=== PATIENT | male | born 1960 | race Two or more races ===

== ENCOUNTER 2017-01-13 08:17 | Emergency (ER) | payer MEDICAID ==
[~2017-01-13] VITALS: Ht 177.8 cm; Wt 55.8 kg
--- NOTE | 2017-01-13 08:20 | NUR ---
PATIENT BIB [phone] FOR CONSTIPATION, LAST BM WAS THIS AM. PATIENT'S A/OX 4. BREATHING EVEN AND UNLABORED. NO SOB. VITALS STABLE. SAFETY AND COMFORT MEASURES IN PLACE. AWAITING MD ORDERS.
[2017-01-13] MEDS ORDERED: MAGNESIUM CITRATE 296 ML BOTTLE ONE (08:40)
--- NOTE | 2017-01-13 08:42 | NUR ---
PATIENT MEDICATED PER MD ORDERS.
[2017-01-13] MEDS ORDERED: MAGNESIUM CITRATE 296 ML BOTTLE PO ONE (09:00)
[2017-01-13] MEDS ORDERED: NA PHOS,M-B/NA PHOS,DI-BA 1 EA ENEMA RC ONE ×2 (09:57→10:00)
--- NOTE | 2017-01-13 10:10 | NUR ---
FLEET ENEMA ADMINISTERED PER MD ORDERS.
--- NOTE | 2017-01-13 10:35 | NUR ---
PATIENT HAD FULL BOWEL MOVEMENT, STATING HE FEELS MUCH BETTER. MD INFORMED.
--- NOTE | 2017-01-13 10:45 | NUR ---
Patient discharged to home in stable condition. Written and verbal after care instructions given. Patient verbalizes understanding of instruction.
[2017-01-13 10:52] VITALS: BP 132/80
== END 2017-01-13 10:45 | disposition home or self-care (01) ==
LOC: ER 08:18
DX: K59.00 Constipation, unspecified (principal); G89.29 Other chronic pain; Z79.891 Long term (current) use of opiate analgesic
CPT/HCPCS: A4606; Z7610

== ENCOUNTER 2017-01-16 21:30 | Emergency (ER) | payer MEDICAID ==
[~2017-01-16] VITALS: Ht 177.8 cm; Wt 55.8 kg
--- NOTE | 2017-01-16 23:43 | NUR ---
ALEXIS PUGH AT BEDSIDE TO G[facility] BARAH[facility].
[2017-01-16] MEDS ORDERED: LIDOCAINE 2% JEL UROJET 10 ML MM ONE (23:54)
[2017-01-17] MEDS ORDERED: LIDOCAINE 2% JEL UROJET 10 ML MM ONE
[2017-01-17 00:08] LABS: BASOPHILS % (AUTO) 0.1 % (0.0-2.0); EOSINOPHILS % (AUTO) 0.1 % (0.0-6.0); HEMATOCRIT 49 % (39-51); HEMOGLOBIN 16.5 g/dL (13.5-17.5); LYMPHOCYTES # (AUTO) 1.6 /CMM (0.8-4.8); LYMPHOCYTES % (AUTO) 9.9 % (20.0-44.0); MEAN CORPUSCULAR HEMOGLOBIN 32 PG (26.0-33.0); MEAN CORPUSCULAR HGB CONC 34 g/dl (31.0-36.0); MEAN CORPUSCULAR VOLUME 96 fL (80-96); MONOCYTES # (AUTO) 2.3 /CMM (0.1-1.30); MONOCYTES % (AUTO) 13.5 % (2.0-12.0); NEUTROPHILS # (AUTO) 12.8 /CMM (1.8-8.9); NEUTROPHILS % (AUTO) 76.4 % (43.0-81.0); PLATELET COUNT (AUTO) 361 /CMM (150-450); RDW COEFFICIENT OF VARIATION 12.4 (11.5-15.0); RED BLOOD CELL COUNT(AUTO) 5.14 MIL/uL (4.5-6.0); WHITE BLOOD COUNT (AUTO) 16.7 K/uL (4.3-11.0)
--- NOTE | 2017-01-17 00:18 | NUR ---
UNABLE TO CATH PT FOR URINE SAMPLE, BRIGHT RED BLOOD NOTED, 2ND ATTEMPT UNSUCCESSFUL WITNESSED BY ER MD. ER MD AWARE, ER MD AT BEDSIDE TO RE-EVAL PT. PT TOLERATED PROCEDURE WELL.
[2017-01-17 00:22] LABS: INR 1.02 (0.87-1.13); PROTHROMBIN TIME 10.6 SECS (9.5-12.7)
--- NOTE | 2017-01-17 00:22 | NUR ---
56ML URINE NOTED WITH BLADDER SCANNER. ER MD PHILIP AWARE.
[2017-01-17 00:24] LABS: CALCIUM, SERUM 9.6 mg/dL (8.5-10.1); POTASSIUM 4.4 mmol/L (3.5-5.1)
[2017-01-17 00:31] LABS: ALBUMIN 3.4 g/dL (3.4-5.0); BILIRUBIN,DIRECT 0.3 mg/dL (0.0-0.2); BILIRUBIN,TOTAL 1.4 mg/dL (0.2-1.0); TOTAL PROTEIN, SERUM 8.2 g/dL (6.4-8.2)
--- NOTE | 2017-01-17 01:23 | NUR ---
ALEXIS PUGH AT BEDSIDE TALKING TO PT.
--- NOTE | 2017-01-17 01:29 | NUR ---
BLADDER SCAN DONE NOTED 136ML'S URINE NOTED. ER MD MADE AWARE.
--- NOTE | 2017-01-17 01:35 | NUR ---
CALLED [facility], MD CLARK IS SPEAKING WITH TRANSFER NURSE TO PRESENT THE CASE
--- NOTE | 2017-01-17 02:38 | NUR ---
ALEXIS PUGH SPOKE TO [facility] MD PEREZ REGARDING PT. PT WAS NOT ACCEPTED PER DR. CLARK.
--- NOTE | 2017-01-17 02:41 | NUR ---
[facility] CALLED SPOKE TO [employer] SPLICER WINNIE STATES NO BED AVAILABLE AT THIS TIME.
--- NOTE | 2017-01-17 02:46 | NUR ---
[facility] SPOKE TO NURSING CHANNEL SALES MANAGER TACO ORO STATES NO SERVICES AVAILABLE AT THIS TIME.
--- NOTE | 2017-01-17 02:59 | NUR ---
[facility] DOES NOT HAVE UROLOGY SERVICES
--- NOTE | 2017-01-17 03:18 | NUR ---
CALLED [facility] TRANSFER LINE [phone], SPOKE WITH TACO NOLAN. CALL TRANSFERED TO DR. CLARK.
[2017-01-17] MEDS ORDERED: IV NS 0.9% 1,000 ML BAG IV ONE ×2 (03:30)
[2017-01-17 05:10] LABS: APPEARANCE,URINE SL CLOUDY (CLEAR); BILIRUBIN,URINE 1+ (NEGATIVE); BLOOD, URINE 3+ Ery/uL (NEGATIVE); KETONES,URINE 1+ (NEGATIVE); LEUKOCYTE ESTERASE ,URINE TRACE (NEGATIVE); NITRITE, URINE NEGATIVE (NEGATIVE); PROTEIN,URINE TRACE mg/dl (NEGATIVE); UGLUCOSE NEGATIVE (NEGATIVE)
[2017-01-17 05:12] LABS: COLOR,URINE DARK YELLOW (YELLOW)
[2017-01-17 05:22] LABS: BACTERIA,URINE Moderate /HPF (None Seen); RBC,URINE TOO NUMEROUS TO COUN /HPF (0-2); SQUAMOUS EPITHELIAL CELL,UR Few /HPF (None Seen)
[2017-01-17] MEDS ORDERED: NITROFURANTOIN/NITROFURAN MAC 100 MG CAPSULE PO ONE (05:30)
[2017-01-17] MEDS ORDERED: NITROFURANTOIN/NITROFURAN MAC 100 MG CAPSULE ONE (05:41)
[2017-01-17 06:00] VITALS: BP 137/69
--- NOTE | 2017-01-17 06:00 | NUR ---
IV removed. Catheter intact and site benign. Pressure and 4x4 applied to site. No bleeding noted. Patient discharged to home in stable condition. Written and verbal after care instructions given. Patient verbalizes understanding of instruction. ambulatory with a steady gait noted. pt aaox4 no acute distress noted, resp even and unlabored. no pain or discomfort noted.
== END 2017-01-17 06:00 | disposition home or self-care (01) ==
LOC: ER 21:31
DX: R33.9 Retention of urine, unspecified (principal); R79.1 Abnormal coagulation profile
CPT/HCPCS: 36415; 51702; 80048; 80076; 81001; 85025; 85730; 87086; 93005; 96360; 96361; 99285; A4606; J3490; Z7610; 81000-TC; J7030